=== PATIENT | female | born 2005 | race Caucasian/White ===

== ENCOUNTER 2025-05-08 05:57 | Day surgery (SDC) | payer OTHER ==
[2025-05-06 13:16] VITALS: BMI 19.6
[2025-05-08] MEDS ORDERED: Ferric Subsulfate 8 ML TOPICAL SOLN ONE (07:11)
[2025-05-08] MEDS ORDERED: PROPOFOL 40 ML ONE (07:13)
[2025-05-08] MEDS ORDERED: KETAMINE 100 MG/ML (5ML VIAL) ONE (07:13)
[2025-05-08] MEDS ORDERED: Ondansetron PF 4 MG/2 ML Vial ONE (07:13)
[2025-05-08] MEDS ORDERED: Lidocaine 1% PF 5 ML VIAL ONE (07:13)
[2025-05-08] MEDS ORDERED: Hydrocodone-Acetamin 15 ML UDCUP ONE (10:19)
== END 2025-05-08 10:48 | disposition home or self-care (01) ==
LOC: CSHSDC 05:57
PROVIDERS: ATTEND Specialist
PROC: 0CBPXZZ Excision of Tonsils, External Approach (ICD-10-PCS; principal; 2025-05-08)
DX: J35.01 Chronic tonsillitis (principal); G47.33 Obstructive sleep apnea (adult) (pediatric)
CPT/HCPCS: 88304; J1100; J2405; J2704; J3010